=== PATIENT | male | born 1975 | race African-American/Black ===

== ENCOUNTER 2022-10-07 07:23 | Emergency (ER) | payer OTHER, SELFPAY ==
--- NOTE | ~2022-10-07 | XR_ITS ---
EXAMINATION: XR HAND, LEFT CLINICAL INFORMATION: Chronic in thumb COMPARISON: None available. TECHNIQUE: PA, lateral, and oblique views of the left hand. FINDINGS: Radiopaque hook with 3 large prongs are noted with one of the prongs embedded along the first distal phalanx soft tissues along its dorsal aspect along its dorsal aspect slightly proximal to the nailbed. No acute visible fracture or dislocation. Joint spaces and alignment are maintained. XR/XR hand LT 2V IMPRESSION: 1. Radiopaque hook with 3 large prongs are noted with one of the prongs embedded along the first distal phalanx soft tissues along its dorsal aspect slightly proximal to the nailbed. 2. No acute visible fracture or dislocation.
[2022-10-07 07:31] VITALS: BP 112/48; PULSE 68; RESP 18; TEMP 36.6; O2SAT 99; BMI 25.0
--- NOTE | 2022-10-07 08:31 | ED_ITS ---
HPI - General Adult General Chief complaint: General Medical Stated complaint: fish hook in finger Time Seen by Provider: 10/07/22 08:28 Source: patient Mode of arrival: ambulatory Limitations: no limitations History of Present Illness HPI narrative: 46-year-old male presents with fishhook to left thumb happened prior to arrival accidentally. Patient tried to remove the fishhook with little to no success. Patient tells me that the fishhook is barbed and it is difficult to remove. Denies numbness, tingling. Unsure of tetanus status however he tells me he thinks he may have it however unclear. Patient denies fevers, chills. No other injuries with fishhook. Related Data Previous Rx's Medication Instructions Recorded cephalexin 500 mg tablet 500 mg PO Q6H 10 days #40 tabs 10/07/22 Allergies Allergy/AdvReac Type Severity Reaction Status Date / Time No Known Allergies Allergy Unverified 11/27/19 17:08 Review of Systems Review of Systems: Constitutional : No Fever, No Chills, Cardiovascular : No Chest Pain, No SOB Respiratory : No Dyspnea Gastrointestinal : No abdominal pain Musculoskeletal : No Joint Swelling Skin : No rash, No skin laceration, + FB in finger Neuro : No Weakness, No Numbness Psych : No SI/HI Yes all other systems are reviewed and are negative [facility] Social History Social History Advance Directives: No Advance Directives Information Provided: No Physical Exam ED Vital Signs: Vital Signs - 24 hr 10/07/22 07:31 Temperature 97.8 F Pulse Rate 68 Respiratory Rate 18 Blood Pressure 112/48 L Pulse Oximetry 99 Oxygen Delivery Method Room Air BMI result Body Mass Index 25.0 Vital signs Appearance: Alert.? Oriented X3.? No acute distress.? Head: Normocephalic, atraumatic, no step-offs or deformities Eyes: Pupils equal, round and reactive to light.? CVS: Normal heart rate and rhythm.? Pulses normal.? Respiratory: No respiratory distress.? Breath sounds normal.? Abdomen: Soft and nontender.? Skin: Skin warm and dry.? Normal skin color.? Normal skin turgor.?+ patient took with barbed hook in left thumb, fat pad, normal capillary refill less than 2 seconds to bilateral upper extremity digits, no wrist drop, normal sensation distally, 2+ radial pulses equal bilateral. No point tenderness to palpation. No discharge or erythema at this time. Extremities: No lower extremity edema.? No calf ttp. 5/5 strength to bilateral upper and lower extremities Neuro: Oriented X 3.? No motor deficit.? No sensory deficit. CN 2-12 intact Course Reevaluation(s) Reevaluation #1: Patient states that he thinks he had his tetanus shot unclear however he does not want today. Successfully removed fishhook tolerated procedure well. Ed ucated patient on diagnosis and treatment plan, answered all question, patient verbalizes understanding. At this time patient will be discharged home, advised to return with new or worsening symptoms. Educated on worrisome signs and symptoms and when to return. At this time I feel comfortable discharge home. Time: 09:06 Medical Decision Making Medical Decision Making [facility] Narrative: 0832 46-year-old male presents with fishhook to left thumb. Physical exam significant for ?+ patient took with barbed hook in left thumb, fat pad, normal capillary refill less than 2 seconds to bilateral upper extremity digits, no wrist drop, normal sensation distally, 2+ radial pulses equal bilateral. No point tenderness to palpation. No discharge or erythema at this time. This is likely a simple foreign body in finger, unlikely fracture, dislocation, threat to limb, neurovascular compromise. No evidence of infection at this time. Plan will attempt to remove fishhook using a digital block to finger, with lidocaine. Due to mechanism of injury patient to be discharged home with Keflex. Advised return with new or worsening symptoms educated on signs of infection. Educated patient on diagnosis and treatment plan, answered all question, patient verbalizes understanding. At this time patient will be discharged home, advised to return with new or worsening symptoms. Educated on worrisome signs and symptoms and when to return. At this time I feel comfortable discharge home. Differential Diagnosis Differential Diagnoses: The differential diagnosis associated with the presentation includes This is likely a simple foreign body in finger, unlikely fracture, dislocation, threat to limb, neurovascular compromise. No evidence of infection at this time. Admission/Observation Consideration of admission/observation: Escalation of care including admission/observation considered No indication for hospital admission Independent Interpretation I performed an independent interpretation of an: Plain X-Ray (XR/XR hand LT 2V IMPRESSION: 1. Radiopaque hook with 3 large prongs are noted with one of the prongs embedded along the first distal phalanx soft tissues along its dorsal aspect slightly proximal to the nailbed. 2. No acute visible fracture or dislocation.) Core Measures AMI core measures followed: Yes Measure exclusions: not indicated Critical Care Time Critical Care Time Critical Care Time: No Discharge Plan Discharge Clinical Impression: Fish hook in finger Patient Disposition: Home, Self-Care Additional Instructions: Take your medications as prescribed. If you were prescribed antibiotics today, it is important that you take your medication to their entirety, do not skip any doses, do not finish them early. Follow-up with your primary care provider this week. Return to the emergency department with new or worsening symptoms. Such as fevers, chills, chest pain, shortness of breath, nausea, vomiting, dizziness, headache, vision changes, lethargy In case of emergency call 911 Prescriptions: New cephalexin 500 mg tablet 500 mg PO Q6H 10 Days Qty: 40 0RF Referrals: Physician,Unknown J [Primary Care Provider] - 2 days Stand Alone Forms: Work/School Release
--- NOTE | 2022-10-07 12:31 | PC.NURSE ---
8ML LIDO 1% ( #4 2ml vial) ADM BY PROVIDER FOR LEFT THUMB FOREIGN BODY REMOVAL- PROVIDER TO EDIT ORDER
== END 2022-10-07 09:15 | disposition home or self-care (01) ==
PROVIDERS: Emergency Provider Student in an Organized Health Care Education/Training Program
DX: S61.042A Puncture wound with foreign body of left thumb without damage to nail, initial encounter (principal); W45.8XXA Other foreign body or object entering through skin, initial encounter; Y93.19 Activity, other involving water and watercraft; Y92.89 Other specified places as the place of occurrence of the external cause; Y99.9 Unspecified external cause status
CPT/HCPCS: 73120; 99281; 99284